=== PATIENT | male | born 1965 | race Hispanic/Latino ===

== ENCOUNTER 2017-01-06 20:52 | Emergency (ER) | payer OTHER ==
[~2017-01-06] VITALS: Ht 188 cm; Wt 83.9 kg
[2017-01-06 20:55] VITALS: BP 137/85
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
[2017-01-06] MEDS ORDERED: NAPROSYN500 M1 PO (22:25)
== END 2017-01-06 22:29 ==
LOC: ERH 20:52
DX: S39.012A Strain of muscle, fascia and tendon of lower back, initial encounter (principal); S46.911A Strain of unspecified muscle, fascia and tendon at shoulder and upper arm level, right arm, initial encounter; S46.912A Strain of unspecified muscle, fascia and tendon at shoulder and upper arm level, left arm, initial encounter; S16.1XXA Strain of muscle, fascia and tendon at neck level, initial encounter; V49.40XA Driver injured in collision with unspecified motor vehicles in traffic accident, initial encounter; Y92.9 Unspecified place or not applicable; Y93.9 Activity, unspecified